=== PATIENT | male | born 1960 | race Caucasian/White ===

== ENCOUNTER 2020-09-08 21:11 | Inpatient (IN) | payer MEDICAID, SELFPAY ==
[2020-09-08] VITALS (24 sets, daily range): BP systolic 127–153; BP diastolic 78–105; PULSE 92–109; RESP 19–34; TEMP 36.6; O2SAT 89–96
--- NOTE | 2020-09-08 21:15 | RT.EKG_ITS ---
APPROVED REPORT Exam: Resting ECG Patient Location: E HR:103 bpm ECG Measurements Heart Rate 103 AXIS HI 147 P 0 QRSd 106 QRS 46 QT 348 T 23 QTc 457 Conclusion Sinus tachycardia. Probable left atrial enlargement. No ST elevation
--- NOTE | 2020-09-08 21:50 | ED.GENADUL_ITS ---
Discharge Plan Disposition Condition: Improving Discharge Details Chief Complaint: SOB Admit Date/Time: 09/09/20 00:49 Admit Provider: Bk Velazquez Attending Provider: Bk Velazquez Primary Care Provider: None,None ED Provider: Jeimy Ruvalcaba Discharge Instructions Activity:: Activity as Tolerated Equipment/Supplies:: No Equipment Needed Diet:: Normal Diet Discharge Orders Discharge Orders: Discharge Order (Routine); Ordered 09/13/20 Ordered By: Vinny Aguilar Discharge Data Discharge Date/Time-TO BE ENTERED AT DEPARTURE: 09/09/20 03:00 Medical Decision Making Patient pleasant 59-year-old male, otherwise healthy, presenting to to complain of shortness of breath. He reports over the past 2 weeks he has been having body aches, chills, fatigue. States that he initially began with a cough. Shortness of breath is new has developed over the past few days. States that his generalized body aches, malaise and diarrhea have been improving slightly but the shortness of breath has been worsening. No history of respiratory or cardiac disease. He has not been taking any medications for this. No known sick contacts. He has had a diminished sense of taste. He has not been immunized yet for COVID-19 On exam, patient appears fatigued. He is tachycardic and hypoxic. Lowest O2 witness was 88% on room air. Patient is responding well on 2 L nasal cannula. Appears dry with a thick coating on his tongue. This is not consistent with thrush. Lungs are clear. No lower extremity edema or calf tenderness. Abdomen benign. His history is most consistent with COVID-19. Also considered influenza, bacterial pneumonia, versus other viral illness. Have the patient is hypoxic and tachycardic, also consider pulmonary embolism. Is not have clinical exam findings to suggest DVT. He is not having any chest pain, I have no indication suggest ACS, pneumothorax or dissection is the source of his shortness of breath. Plan for chest x-ray, labs. If he has had diminished fluid intake, plan to give gentle hydration. Discussed this plan with the patient who is in agreement. FINDINGS: Lungs: Patchy opacities in bilateral lower lobes are concerning for multifocal pneumonia. Pleural spaces: Unremarkable. No pleural effusion. No pneumothorax. Heart/Mediastinum: Unremarkable. No cardiomegaly. Bones/joints: Unremarkable. IMPRESSION: Probable multifocal pneumonia Labs reviewed. No leukocytosis. Stable H&H. Absolute lymphocytes low at 0.88. D-dimer is elevated at 1722. With this elevation, particular given the patient's tachycardia and hypoxia, plan to move forward for CT for PE protocol. LVH elevated at 504, troponin within normal limits. CRP is elevated 8.4. Patient's history and labs are most consistent with COVID-19. Awaiting rapid Covid testing. Rapid Covid is positive. Patient will be given 6 mg of dexamethasone. Originally, remdesivir was ordered but were unable to start this at night. With his permission, spoke with his daughter, Gail Parikh?[id number]. [address] Dr[address] Velazquez regarding admission for COVID-[address] results are pending. Patient does not have any evidence to suggest right heart sided heart strain on physical exam or ECG. We will hold off on any type of anticoagulation until CT scan has returned. HPI General Mode of arrival: ambulatory . Date/Time Provider Initiated Documentation: 09/08/20 21:23 . Limitations to Documentation: no limitations . Information obtained by: patient and RN notes reviewed . History of Present Illness 59 year old M presents to the emergency department with the chief complaint of body aches, cough, SOB, diarrhea, described as moderate, Quality is described as aching (diffuse body aches), Patient started experiencing this week(s) (2) and it has been constant. No relieving factors improve symptom(s), No exacerbating factors reported . Patient notes cough, fever/chills, loss of appetite and shortness of breath; denies chest pain, diaphoresis, headaches, nausea/vomiting, rash and syncope. Patient did receive the following treatments prior to arrival, none Related Data Home Medications Medication Instructions Recorded Confirmed Unknown [No Known Home Meds] 08/27/17 09/08/20 Allergies Allergy/AdvReac Type Severity Reaction Status Date / Time No Known Allergies Allergy Unverified 09/08/20 21:32 General Stated Complaint: SOB BHARAT: 2 Review of Systems Constitutional Constitutional: Reports as per HPI, Reports chills, Reports fatigue, Reports fever(s), Denies headache(s), Reports lethargy and Denies poor appetite Eyes Eyes: Denies change in vision ENT Ears, Nose, Mouth, and Throat: Denies dizziness and Denies headache(s) Cardiovascular Cardiovascular: Reports as per HPI, Reports dyspnea and Reports dyspnea on exertion Respiratory Respiratory: Reports as per HPI, Denies chest congestion, Reports cough, Denies pain on inspiration, Denies pain with cough, Reports dyspnea, Reports dyspnea on exertion and Denies wheezing Gastrointestinal Gastrointestinal: Reports as per HPI, Denies abdominal pain, Denies melena, Denies hematochezia, Reports diarrhea, Denies nausea and Denies vomiting Genitourinary Genitourinary: Denies system reviewed and no additional complaints, except as documented (denies change in urinary habits) Musculoskeletal Musculoskeletal: Reports as per HPI and Denies back pain Integumentary/Breasts Skin/Breast: Reports as per HPI and Denies rash Neurologic Neurologic: Reports as per HPI, Denies dizziness and Denies headache(s) Endocrine Endocrine: Reports fatigue Allergic/Immunologic Allergic/Immunologic: Denies wheezing [facility] Social History Smoking/Tobacco Use Status: Never Smoking risk assessment performed?: Yes Drug use: Never Substance use type: does not use Do you feel safe at home: Yes Do you feel safe in your relationship?: Yes Exam Const General: cooperative, comfortable, no acute distress, well developed and ill appearing acutely Nutritional Appearance: average body habitus and well nourished Orientation: alert, awake and oriented x3 HENMT Head: normal to inspection Ears: hearing grossly normal bilaterally Mouth: mucous membranes dry, tongue abnormal with white coating (similar to geographic tongue), no trismus and No restricted motion Throat: posterior oropharynx normal, tonsils normal and uvula midline Neck Neck: normal visual inspection, full ROM, no lymphadenopathy and no meningeal signs Chest Chest: normal inspection of the chest, normal palpation of entire chest wall and no crepitus Resp Effort & Inspection: normal respiratory effort, able to speak in complete sentences and no respiratory distress Auscultation: clear to auscultation bilaterally, no rales, no rhonchi and no wheezes Cardio Rate: regular rate Rhythm: regular rhythm Heart Sounds: S1 normal and S2 normal GI Inspection: normal to inspection, no edema and non-distended Palpation: soft, no hepatosplenomegaly, not firm, no guarding, not rigid and nontender Auscultation: normal bowel sounds Skin General skin exam: no rashes or lesions noted Trauma: no lacerations or abrasions Neuro General: patient alert, patient awake and patient oriented x3 Cognition: normal cognition Speech: speech normal Gait: normal gait Extrem General: normal to inspection, capillary refill normal, no pedal edema, no calf tenderness and normal gait Psych Appearance: grossly normal and well kempt Mental Status: mental status grossly normal Speech and Movement: speech and movement normal Course Vital Signs Vital signs: Vital Signs Temperature 36.6 C 09/08/20 21:26 Pulse 109 H 09/08/20 21:26 Respiratory Rate 24 09/08/20 21:26 Blood Pressure 127/85 09/08/20 21:26 Pulse Oximetry 89 L 09/08/20 21:26 Temperature 36.6 C 09/08/20 21:26 Temperature Source Temporal Artery Scan 09/08/20 21:26 Pulse 109 H 09/08/20 21:26 Respiratory Rate 32 H 09/08/20 21:46 Respiratory Effort 09/08/20 21:46 Respiratory Depth Shallow 09/08/20 21:46 Respiratory Pattern Tachypnea 09/08/20 21:46 Blood Pressure 127/85 09/08/20 21:26 Pulse Oximetry 89 L 09/08/20 21:26 Oxygen Delivery Method Room Air 09/08/20 21:26 Oxygen Flow Rate 0 09/08/20 21:26
--- NOTE | 2020-09-08 22:27 | DI.RAD_ITS ---
EXAM: XR PORTABLE CHEST AP CLINICAL HISTORY: SOB, cough TECHNIQUE: 2D digital imaging was performed. COMPARISON: No exams were available for comparison FINDINGS: MEDIASTINUM: Normal. HEART: Normal. PULMONARY VASCULATURE: Normal. LUNGS: Bilateral pulmonary infiltrates are seen predominantly peripherally in the bases. PLEURAL SPACE: No pleural effusion or pneumothorax. BONE:Within normal limits for the patient's age. OTHER FINDINGS:Normal. IMPRESSION: Bilateral pulmonary infiltrates suspicious for multifocal pneumonia. DATA REPOSITORY: RADIATION DOSE DELIVERED:
[2020-09-08] MEDS: Normal Saline 500 ML IV (22:28)
[2020-09-08 22:29] LABS: Abs Immature Grans 0.03 10^3/uL (0.0-0.06); Absolute Basophil Count 0.01 10^3/uL (0.0-0.2); Absolute Lymphocyte Count 0.88 10^3/uL (1.2-3.4); Absolute Monocyte Count 0.38 10^3/uL (0.1-0.8); Absolute Neutrophil Count 4.87 10^3/uL (1.2-6.7); Basophils % 0.2; HCT 44.7 % (40.0-50.0); HGB 15.3 g/dL (13.5-17.5); Immature Grans % 0.5; Lymphocytes % 14.3; MCH 30.5 pg (27.0-33.0); MCHC 34.2 % (32.0-36.0); MPV 9.9 fL (8.0-11.0); Monocytes % 6.2; Neutrophils % 78.8; Nucleated RBC 0 %; Platelet Count 277 10^3/uL (130-400); RBC 5.02 10^6/uL (4.36-5.78); RDW 12.2 % (11.8-14.1); WBC 6.17 10^3/uL (4.4-10.8)
--- NOTE | 2020-09-08 22:40 | DI.VRAD_ITS ---
PROCEDURE INFORMATION: Exam: XR Chest Exam date and time: 09/08/2020 10:07 PM Age: 59 years old Clinical indication: Cough and shortness of breath TECHNIQUE: Imaging protocol: XR of the chest Views: 1 view. COMPARISON: No relevant prior studies available. FINDINGS: Lungs: Patchy opacities in bilateral lower lobes are concerning for multifocal pneumonia. Pleural spaces: Unremarkable. No pleural effusion. No pneumothorax. Heart/Mediastinum: Unremarkable. No cardiomegaly. Bones/joints: Unremarkable. IMPRESSION: Probable multifocal pneumonia. Dictated and Authenticated by: Bk Edge MD. Ordering:TOBY Munson MD
[2020-09-08 23:00] LABS: LDH 504 U/L (85-227)
[2020-09-08 23:01] LABS: ALT 44 U/L (16-63); AST 47 U/L (15-37); Albumin 3.3 g/dL (3.4-5.0); Alkaline Phosphatase 59 U/L (46-116); Anion Gap 12.4 mmol/L (3-11); BUN 11 mg/dL (7-18); Bilirubin, Total 0.4 mg/dL (0.2-1.0); CO2 24.6 mmol/L (21.0-32.0); Calcium 8.4 mg/dL (8.5-10.1); Chloride 98 mmol/L (98-107); Glucose 129 mg/dL (74-106); Magnesium 1.9 mg/dL (1.8-2.4); Potassium 3.7 mmol/L (3.5-5.1); Sodium 135 mmol/L (136-145); Total Protein 7.8 g/dL (6.4-8.2)
[2020-09-08 23:04] LABS: D-Dimer 1722 ng/mlFEU (<500)
[2020-09-08 23:14] LABS: Influenza A PCR Negative (Negative); Influenza B PCR Negative (Negative); RSV PCR Negative (Negative)
[2020-09-08 23:20] LABS: COVID-19 PCR POSITIVE (Negative)
[2020-09-08] MEDS: Dexamethasone 4 MG/ML VIAL 6 MG IVP (23:42)
--- NOTE | 2020-09-08 23:51 | DI.CT_ITS ---
EXAM: CT CHEST PE CTA CLINICAL HISTORY: elevated dimer, SOB, O2 demand. TECHNIQUE: Imaging Protocol: Axial CT angiography was performed with multi-slice acquisition and mu lti-planar and/or 3D reconstructions. CONTRAST MATERIAL: Intravenous: Omnipaque 350 Contrast volume:80 mL COMPARISON: CR,XR XR PORTABLE CHEST AP from 09/08/2020 CR,XR XR PORTABLE CHEST AP from 09/08/2020 FINDINGS: The examination is limited due to patient motion artifact. Tracheobronchial tree: Patent where visualized. Pulmonary parenchyma: There are bilateral multifocal predominantly peripheral ground-glass opacities in the lungs. The findings predominantly affect the lower lobes. No architectural distortion. Pulmonary Arteries: No evidence of filling defect to suggest pulmonary emboli. Mediastinum and Love: No dominant adenopathy or fluid collection. Visualized thyroid gland: Unremarkable. Pleura: No effusion or pneumothorax. Heart: The heart is not dilated. Mild coronary artery calcification. No pericardial effusion. Aorta: Thoracic aorta non-dilated. No evidence of dissection. Upper abdomen: Unremarkable. Soft tissues: Unremarkable. Bones: Within normal limits for the patient's age. IMPRESSION: 1. No evidence of pulmonary embolism, thoracic aortic dissection or aneurysm. 2. Scattered peripheral ground-glass opacities consistent with multifocal pneumonia, likely viral. RADIATION DOSE DELIVERED: 466.98mGy.cm Total DLP DATA REPOSITORY: All CT scans at this facility are submitted to the National Radiology Data Registry (NRDR) Dose Index Registry (DIR) with the [employer] (A[employer]). RADIATION OPTIMIZATION: All CT scans at this facility use at least one of these dose optimization te chniques: automated exposure control; mA and/or kV adjustment per patient size (includes targeted exa ms where dose is matched to clinical indication); or iterative reconstruction.
[2020-09-08 23:56] LABS: Troponin I < 0.05 ng/mL (<0.06)
[2020-09-09] VITALS (29 sets, daily range): BP systolic 129–168; BP diastolic 80–100; PULSE 59–83; RESP 18–28; TEMP 36.2–37.7; O2SAT 94–98
[2020-09-09] MEDS: Omnipaque 350 MG/ML 50 ML BTL IJ ×2 (00:11→00:12)
[2020-09-09] MEDS: Normal Saline Flush 10 ML SYR IVP ×3 (00:11→17:47)
[2020-09-09] MEDS: Normal Saline - Diluent 50 ML VIAL IV (00:12)
--- NOTE | 2020-09-09 00:23 | DI.VRAD_ITS ---
PROCEDURE INFORMATION: Exam: CT Angiography Chest With Contrast Exam date and time: 09/08/2020 11:12 PM Age: 59 years old Clinical indication: Shortness of breath TECHNIQUE: Imaging protocol: Computed tomographic angiography of the chest with contrast. 3D rendering (Not supervised by radiologist): MIP and/or 3D reconstructed images were created by the technologist. Radiation optimization: All CT scans at this facility use at least one of these dose optimization techniques: automated exposure control; mA and/or kV adjustment per patient size (includes targeted exams where dose is matched to clinical indication); or iterative reconstruction. Contrast material: [id number]; Contrast volume: 80 ml; Contrast route: INTRAVENOUS (IV); COMPARISON: CR XR PORTABLE CHEST AP 09/08/2020 10:10 PM FINDINGS: Pulmonary arteries: Normal. No pulmonary emboli. Aorta: Unremarkable. No aortic aneurysm. No aortic dissection. Lungs: Scattered peripheral ground-glass opacities. Pleural spaces: Unremarkable. No pneumothorax. No pleural effusion. Heart: Unremarkable. No cardiomegaly. No pericardial effusion. Lymph nodes: Unremarkable. No enlarged lymph nodes. Liver: No intrahepatic contrast reflux. Bones/joints: Mild multilevel degenerative disc disease. No acute fracture or focal suspicious osseous lesion. Soft tissues: Unremarkable. IMPRESSION: 1. No pulmonary embolism. 2. Scattered peripheral ground-glass opacities, consistent with multifocal pneumonia, likely viral. Dictated and Authenticated by: Bk Edge MD. Ordering:TOBY Munson MD
--- NOTE | 2020-09-09 00:39 | W.PM.HP.N ---
Date of service: 09/09/20 Time of Service: 00:40 Assessment and Plan Assessment and plan (1) COVID-19: Status: Acute Assessment and plan: Covid 19 manifesting with patchy pneumonitis and hypoxia. Oxygenating well with supplemental O2. Will continue Dexamethasone and Remdesivir. Will add Lovenox at prophylaxis dosing. History of Present Illness History of Present Illness Chief Complaint: SOB Narrative: 59 male non-smoker, here with two weeks of constitutional sxx (fatigue, myalgia), diarrhea, dry cough and SOB. All has largely resolved except continuing SOB. In ER findings of note for O2 sat 89% on RA, lymphopenia and elevated LDH and d-Dimer, CXR with bilateral patchy opacities and + Covid swab. CTA negative PE. Given Dexa 6, Remdesivir ordered, not available until AM. Admitted for further management. 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 Review of Systems All systems reviewed & are unremarkable except as noted in HPI and below PFSH Social History Smoking/Tobacco Use Status: Never Smoking risk assessment performed?: Yes Drug use: Never Substance use type: does not use Do you feel safe at home: Yes Do you feel safe in your relationship?: Yes Meds Home Medications and Allergies Allergies Allergy/AdvReac Type Severity Reaction Status Date / Time No Known Allergies Allergy Unverified 09/08/20 21:32 Home Medications Medication Instructions Recorded Confirmed Type Unknown [No Known Home Meds] 08/27/17 09/08/20 History Exam Narrative Exam Narrative: 153/82, 98, 36.6, 26, 94% 2L. HEENT atraumatic; neck supple; lungs fine rales right base; heart RRR w/o MRG; abdomen soft and NT; extremities w/o edema; neuro Ox3, nonfocal Results Labs Result diagrams: 09/08/20 21:45 09/08/20 21:45 Labs: Laboratory Results - last 24 hr 09/08/20 09/08/20 09/08/20 21:45 21:45 21:45 WBC 6.17 RBC 5.02 Hgb 15.3 Hct 44.7 MCV 89.0 MCH 30.5 MCHC 34.2 RDW 12.2 Plt Count 277 MPV 9.9 Immature Gran % 0.5 Neutrophils % 78.8 Lymphocytes % 14.3 Monocytes % 6.2 Eosinophils % 0.0 Basophils % 0.2 Nucleated RBC % 0 Absolute Neutrophils 4.87 Absolute Lymphocytes 0.88 L Absolute Monocytes 0.38 Absolute Eosinophils 0.00 Absolute Basophils 0.01 D-Dimer Sodium 135 L Potassium 3.7 Chloride 98 Carbon Dioxide 24.6 Anion Gap 12.4 H BUN 11 Creatinine 1.0 Estimated GFR/1.73 m2 >= 60.00 Glucose 129 H Calcium 8.4 L Magnesium 1.9 Total Bilirubin 0.4 AST 47 H ALT 44 Alkaline Phosphatase 59 Lactate Dehydrogenase Troponin I C-Reactive Protein 8.40 H Total Protein 7.8 Albumin 3.3 L COVID-19 Source SARS-CoV-2 (PCR) Influenza Type A (PCR) Influenza Type B (PCR) RSV (PCR) 09/08/20 09/08/20 09/08/20 21:45 21:45 21:45 WBC RBC Hgb Hct MCV MCH MCHC RDW Plt Count MPV Immature Gran % Neutrophils % Lymphocytes % Monocytes % Eosinophils % Basophils % Nucleated RBC % Absolute Neutrophils Absolute Lymphocytes Absolute Monocytes Absolute Eosinophils Absolute Basophils D-Dimer 1722 H Sodium Potassium Chloride Carbon Dioxide Anion Gap BUN Creatinine Estimated GFR/1.73 m2 Glucose Calcium Magnesium Total Bilirubin AST ALT Alkaline Phosphatase Lactate Dehydrogenase 504 H Troponin I < 0.05 C-Reactive Protein Total Protein Albumin COVID-19 Source SARS-CoV-2 (PCR) Influenza Type A (PCR) Influenza Type B (PCR) RSV (PCR) 09/08/20 22:20 WBC RBC Hgb Hct MCV MCH MCHC RDW Plt Count MPV Immature Gran % Neutrophils % Lymphocytes % Monocytes % Eosinophils % Basophils % Nucleated RBC % Absolute Neutrophils Absolute Lymphocytes Absolute Monocytes Absolute Eosinophils Absolute Basophils D-Dimer Sodium Potassium Chloride Carbon Dioxide Anion Gap BUN Creatinine Estimated GFR/1.73 m2 Glucose Calcium Magnesium Total Bilirubin AST ALT Alkaline Phosphatase Lactate Dehydrogenase Troponin I C-Reactive Protein Total Protein Albumin COVID-19 Source Nasopharyx SARS-CoV-2 (PCR) Positive A* Influenza Type A (PCR) Negative Influenza Type B (PCR) Negative RSV (PCR) Negative Last Vital Signs Temp 36.6 C 09/08/20 21:26 Pulse 93 H 09/08/20 23:15 Resp 26 H 09/08/20 23:20 BP 153/82 H 09/08/20 23:15 Pulse Ox 94 09/08/20 23:20 COVID-19 Screening Have you, or household traveled for leisure in last 14 days?: No Had IN PERSON contact w/suspected or confirmed C-19 person: No
[2020-09-09] MEDS: Enoxaparin 40 MG/0.4 ML SYR SC ×2 (03:27→21:38)
[2020-09-09 08:19] LABS: Lactate 1.1 mmol/L (0.6-1.4)
[2020-09-09 08:20] LABS: Abs Immature Grans 0.03 10^3/uL (0.0-0.06); Absolute Monocyte Count 0.41 10^3/uL (0.1-0.8); Absolute Neutrophil Count 3.35 10^3/uL (1.2-6.7); HCT 41.7 % (40.0-50.0); HGB 14.4 g/dL (13.5-17.5); Immature Grans % 0.7; Lymphocytes % 11.7; MCHC 34.5 % (32.0-36.0); MCV 89.7 fL (80-95); MPV 9.4 fL (8.0-11.0); Monocytes % 9.6; Nucleated RBC 0 %; Platelet Count 268 10^3/uL (130-400); RBC 4.65 10^6/uL (4.36-5.78); RDW 12.3 % (11.8-14.1); RDW-SD 40.4 fL; WBC 4.29 10^3/uL (4.4-10.8)
[2020-09-09] MEDS: Cholecalciferol (Vitamin D3) 1,000 UNIT TAB 4000 UNITS PO (08:30)
[2020-09-09] MEDS: Dexamethasone 4 MG TAB 6 MG PO (08:30)
[2020-09-09] MEDS: Famotidine 20 MG TAB PO ×2 (08:30→21:37)
[2020-09-09] MEDS: Ascorbic Acid 500 MG TAB 1000 MG PO (08:30)
[2020-09-09 08:36] LABS: INR 1.1 (0.9-1.1); Prothrombin Time 10.8 sec (9.3-11.0)
[2020-09-09 08:51] LABS: Bilirubin, Direct 0.09 mg/dL (0.00-0.20); C-Reactive Protein 9.61 mg/dL (0.0-0.3); Creatine Kinase 619 U/L (39-308); Magnesium 2.2 mg/dL (1.8-2.4); NT-proBNP 81 pg/mL (<300)
[2020-09-09 08:54] LABS: Procalcitonin < 0.1 ng/mL
[2020-09-09 08:58] LABS: D-Dimer 1317 ng/mlFEU (<500)
[2020-09-09 09:07] LABS: ALT 41 U/L (16-63); AST 40 U/L (15-37); Albumin 2.8 g/dL (3.4-5.0); Alkaline Phosphatase 51 U/L (46-116); BUN 14 mg/dL (7-18); Bilirubin, Total 0.3 mg/dL (0.2-1.0); CREATININE 0.9 mg/dL (0.70-1.30); Calcium 8.4 mg/dL (8.5-10.1); Chloride 104 mmol/L (98-107); Glucose 136 mg/dL (74-106); Potassium 3.6 mmol/L (3.5-5.1); Sodium 139 mmol/L (136-145); Total Protein 7.1 g/dL (6.4-8.2)
[2020-09-09 09:09] LABS: Ferritin > 2000 ng/mL (26-388); Troponin I < 0.05 ng/mL (<0.06)
--- NOTE | 2020-09-09 15:50 | PHA.REVIEW ---
Pharmacy Admission Review - Admission Clinical Review (Last Reviewed 09/09/20 @ 00:44 by Bk Velazquez MD) COVID-19 (Acute) No Known Allergies Allergy (Unverified 09/08/20 21:32) Height 5 ft 9 in Weight 95.254 kg COVID PNEUMONIA, 2 weeks of symptoms - Comments Comments/Follow Ups: Patient rec'd 1st dose of Remdesivir 200mg 09/09/20 ~ 4am, will receive 100mg Q24h for 4 more doses. Dexamethasone for elevated inflammatory markers, Ferritin elevated, Lactate elevated...continue to trend, see Quick guide for management of COVID-19 reference. Patient is on 2L oxygen, with Sats 95-97% - Renal Dosing Renal Dosing: BUN 14 mg/dL (7-18) 09/09/20 08:10 Creatinine 0.9 mg/dL (0.70-1.30) 09/09/20 08:10 Medications needing adjustments: Reviewed (CrCl~87ml/min) - Anticoagulation Anticoagulation: Hgb 14.4 g/dL (13.5-17.5) 09/09/20 08:10 Hct 41.7 % (40.0-50.0) 09/09/20 08:10 Plt Count 268 10^3/uL (130-400) 09/09/20 08:10 INR 1.1 (0.9-1.1) 09/09/20 08:10 Creatinine 0.9 mg/dL (0.70-1.30) 09/09/20 08:10 DVT Prohphylaxis: Reviewed Medications: Enoxaparin - Opiate Usage Evaluate Pain Scale/Pains Meds: N/A - Relevant Labs Sodium 139 mmol/L (136-145) 09/09/20 08:10 Potassium 3.6 mmol/L (3.5-5.1) 09/09/20 08:10 Chloride 104 mmol/L (98-107) 09/09/20 08:10 Magnesium 2.2 mg/dL (1.8-2.4) 09/09/20 08:10 C-Reactive Protein 9.61 mg/dL (0.0-0.3) H 09/09/20 08:10 Electrolytes, C-Reactive P, ESR: Reviewed (Procalcitonin <0.1, Vit D level low, Creatinine kinase elevated 619, C-reactive protein elevated) - DM Control DM Control: Glucose 136 mg/dL (74-106) H 09/09/20 08:10 Insulin Dosing: N/A - Heart Failure/MD Heart Failure/MD: Troponin I < 0.05 ng/mL (<0.06) 09/09/20 08:10 NT-Pro-B Natriuret Pep 81 pg/mL (<300) 09/09/20 08:10 EF%, MARIAM's, B-Blockers, Diuretics: N/A - BP Control BP Control: Blood Pressure 168/94 Blood Pressure 140/94 Blood Pressure 129/80 If elevated: N/A - Qtc Review If Elevated: Reviewed (QTC 457) - Home Meds Home Med List reviewed: Reviewed (no home meds)
--- NOTE | 2020-09-09 16:36 | W.PM.PROGNOT ---
Date of Service Date of service: 09/09/20 Time of Service: 16:36 Subjective Subjective Interval history since last seen: I checked on the patient over the phone as he has been stable today. His O2 sats have been in the 90's on 2L. He feels better. Denies body aches today. Feels less short of breath. Continues to report nonproductive cough. We discussed his elevated CPK - I will be giving him 1 L of NS at 75 cc/hr. We discussed vitamin D supplementation. He did not have any questions or requests for me at this time. Objective Last Vital Signs Temp 36.4 C L 09/09/20 12:09 Pulse 68 09/09/20 15:16 Resp 22 09/09/20 12:09 BP 168/94 H 09/09/20 12:09 Pulse Ox 97 09/09/20 12:09 Laboratory Results - last 24 hr 09/08/20 09/08/20 09/08/20 21:45 21:45 21:45 WBC 6.17 RBC 5.02 Hgb 15.3 Hct 44.7 MCV 89.0 MCH 30.5 MCHC 34.2 RDW 12.2 Plt Count 277 MPV 9.9 Immature Gran % 0.5 Neutrophils % 78.8 Lymphocytes % 14.3 Monocytes % 6.2 Eosinophils % 0.0 Basophils % 0.2 Nucleated RBC % 0 Absolute Neutrophils 4.87 Absolute Lymphocytes 0.88 L Absolute Monocytes 0.38 Absolute Eosinophils 0.00 Absolute Basophils 0.01 PT INR D-Dimer VBG Lactate Sodium 135 L Potassium 3.7 Chloride 98 Carbon Dioxide 24.6 Anion Gap 12.4 H BUN 11 Creatinine 1.0 Estimated GFR/1.73 m2 >= 60.00 Glucose 129 H Calcium 8.4 L Magnesium 1.9 Ferritin Total Bilirubin 0.4 Conjugated Bilirubin AST 47 H ALT 44 Alkaline Phosphatase 59 Lactate Dehydrogenase Creatine Kinase Troponin I C-Reactive Protein 8.40 H NT-Pro-B Natriuret Pep Total Protein 7.8 Albumin 3.3 L 25-OH Vitamin D Total Procalcitonin COVID-19 Source SARS-CoV-2 (PCR) Influenza Type A (PCR) Influenza Type B (PCR) RSV (PCR) 09/08/20 09/08/20 09/08/20 21:45 21:45 21:45 WBC RBC Hgb Hct MCV MCH MCHC RDW Plt Count MPV Immature Gran % Neutrophils % Lymphocytes % Monocytes % Eosinophils % Basophils % Nucleated RBC % Absolute Neutrophils Absolute Lymphocytes Absolute Monocytes Absolute Eosinophils Absolute Basophils PT INR D-Dimer 1722 H VBG Lactate Sodium Potassium Chloride Carbon Dioxide Anion Gap BUN Creatinine Estimated GFR/1.73 m2 Glucose Calcium Magnesium Ferritin Total Bilirubin Conjugated Bilirubin AST ALT Alkaline Phosphatase Lactate Dehydrogenase 504 H Creatine Kinase Troponin I < 0.05 C-Reactive Protein NT-Pro-B Natriuret Pep Total Protein Albumin 25-OH Vitamin D Total Procalcitonin COVID-19 Source SARS-CoV-2 (PCR) Influenza Type A (PCR) Influenza Type B (PCR) RSV (PCR) 09/08/20 09/09/20 09/09/20 22:20 08:10 08:10 WBC RBC Hgb Hct MCV MCH MCHC RDW Plt Count MPV Immature Gran % Neutrophils % Lymphocytes % Monocytes % Eosinophils % Basophils % Nucleated RBC % Absolute Neutrophils Absolute Lymphocytes Absolute Monocytes Absolute Eosinophils Absolute Basophils PT INR D-Dimer VBG Lactate 1.1 Sodium 139 Potassium 3.6 Chloride 104 Carbon Dioxide 24.0 Anion Gap 11.0 BUN 14 Creatinine 0.9 Estimated GFR/1.73 m2 >= 60.00 Glucose 136 H Calcium 8.4 L Magnesium 2.2 Ferritin > 2000 H Total Bilirubin 0.3 Conjugated Bilirubin 0.09 AST 40 H ALT 41 Alkaline Phosphatase 51 Lactate Dehydrogenase Creatine Kinase 619 H Troponin I < 0.05 C-Reactive Protein 9.61 H NT-Pro-B Natriuret Pep 81 Total Protein 7.1 Albumin 2.8 L 25-OH Vitamin D Total Procalcitonin < 0.1 COVID-19 Source Nasopharyx SARS-CoV-2 (PCR) Positive A* Influenza Type A (PCR) Negative Influenza Type B (PCR) Negative RSV (PCR) Negative 09/09/20 09/09/20 09/09/20 08:10 08:10 08:10 WBC 4.29 L D RBC 4.65 Hgb 14.4 Hct 41.7 MCV 89.7 MCH 31.0 MCHC 34.5 RDW 12.3 Plt Count 268 MPV 9.4 Immature Gran % 0.7 Neutrophils % 78.0 Lymphocytes % 11.7 Monocytes % 9.6 Eosinophils % 0.0 Basophils % 0.0 Nucleated RBC % 0 Absolute Neutrophils 3.35 Absolute Lymphocytes 0.50 L Absolute Monocytes 0.41 Absolute Eosinophils 0.00 Absolute Basophils 0.00 PT 10.8 INR 1.1 D-Dimer 1317 H VBG Lactate Sodium Potassium Chloride Carbon Dioxide Anion Gap BUN Creatinine Estimated GFR/1.73 m2 Glucose Calcium Magnesium Ferritin Total Bilirubin Conjugated Bilirubin AST ALT Alkaline Phosphatase Lactate Dehydrogenase Creatine Kinase Troponin I C-Reactive Protein NT-Pro-B Natriuret Pep Total Protein Albumin 25-OH Vitamin D Total 17.0 L Procalcitonin COVID-19 Source SARS-CoV-2 (PCR) Influenza Type A (PCR) Influenza Type B (PCR) RSV (PCR)
[2020-09-09] MEDS: Normal Saline 1,000 ML 75 ML IV (17:44)
--- NOTE | 2020-09-09 18:26 | INITIAL_ITS ---
- If Service Date Differs Date of service: 09/09/20 Time of Service: 18:26 Care Management Initial Assess REASON FOR HOSPITALIZATION:: Covid PAST MEDICAL HISTORY/PAST SURGICAL HISTORY:: No noted medical history. PREVIOUS FUNCTIONAL STATUS/SOCIAL/FAMILY SUPPORTS:: Bonilla lives in [facility]. 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 CM was not able to engage with Bonilla as he is on Covid precautions. CURRENT FUNCTIONAL STATUS:: CM is on precautions for Covid 19, and CM was unable to engage with him. CM attempted to call his cell phone, and left a voicemail. Per report, he is feeling better today. CM will continue to follow. ADVANCE DIRECTIVES:: None on file. Has patient been provided with info about the portal/API?: No Did the patient sign up for the portal?: No CODE STATUS:: Full Code INSURANCE COVERAGE / FINANCIAL ISSUES:: [employer] CURRENT HOME/COMMUNITY SERVICES/EQUIPMENT:: No known services or equipment. PRIMARY CARE PHYSICIAN:: No PCP listed. CM will send a referral to commissioning specialist MD at time of admission. POTENTIAL DISCHARGE NEEDS:: Follow up appointments, PCP attachment. PATIENT/FAMILY EDUCATION NEEDS:: Review discharge instructions regarding Covid 19 precautions, discussion of self care needs. ANTICIPATED BARRIERS TO DISCHARGE:: None identified. TRANSPORTATION:: Via private vehicle by family. PLAN:: Anticipate Bonilla will return home once medically cleared. CM will connect him with a local PCP for follow up. He will be transported via private vehicle by family. CM will continue to follow.
[2020-09-09] MEDS: Melatonin 3 MG TAB 6 MG PO (21:37)
[2020-09-10] VITALS (11 sets, daily range): BP systolic 126–145; BP diastolic 74–99; PULSE 57–73; RESP 18–20; TEMP 36.2–36.9; O2SAT 95–97
[2020-09-10 06:58] LABS: Abs Immature Grans 0.05 10^3/uL (0.0-0.06); Absolute Basophil Count 0.01 10^3/uL (0.0-0.2); Absolute Monocyte Count 0.49 10^3/uL (0.1-0.8); Basophils % 0.1; HCT 42.4 % (40.0-50.0); HGB 14.5 g/dL (13.5-17.5); Immature Grans % 0.7; Lymphocytes % 14.8; MCH 30.7 pg (27.0-33.0); MCHC 34.2 % (32.0-36.0); MCV 89.6 fL (80-95); MPV 9.7 fL (8.0-11.0); Monocytes % 7.2; Neutrophils % 77.2; Nucleated RBC 0 %; Platelet Count 333 10^3/uL (130-400); RBC 4.73 10^6/uL (4.36-5.78); RDW-SD 39.6 fL; WBC 6.77 10^3/uL (4.4-10.8)
[2020-09-10 07:07] LABS: ALT 38 U/L (16-63); AST 29 U/L (15-37); Albumin 2.7 g/dL (3.4-5.0); Alkaline Phosphatase 51 U/L (46-116); Anion Gap 9.6 mmol/L (3-11); BUN 16 mg/dL (7-18); Bilirubin, Direct 0.06 mg/dL (0.00-0.20); Bilirubin, Total 0.3 mg/dL (0.2-1.0); C-Reactive Protein 6.49 mg/dL (0.0-0.3); CO2 25.4 mmol/L (21.0-32.0); CREATININE 0.8 mg/dL (0.70-1.30); Calcium 8.7 mg/dL (8.5-10.1); Chloride 106 mmol/L (98-107); Glucose 105 mg/dL (74-106); Magnesium 2.2 mg/dL (1.8-2.4); Potassium 3.7 mmol/L (3.5-5.1); Sodium 141 mmol/L (136-145); Total Protein 6.9 g/dL (6.4-8.2)
[2020-09-10 07:11] LABS: Absolute Neutrophil Count 5.23 10^3/uL (1.2-6.7)
[2020-09-10 07:30] LABS: D-Dimer 1014 ng/mlFEU (<500)
[2020-09-10 08:06] LABS: Ferritin > 2000 ng/mL (26-388)
[2020-09-10] MEDS: Cholecalciferol (Vitamin D3) 1,000 UNIT TAB 4000 UNITS PO (08:34)
[2020-09-10] MEDS: Ascorbic Acid 500 MG TAB 1000 MG PO (08:35)
[2020-09-10] MEDS: Famotidine 20 MG TAB PO ×2 (08:35→21:52)
[2020-09-10] MEDS: Dexamethasone 4 MG TAB 6 MG PO (08:35)
[2020-09-10 10:48] LABS: Creatine Kinase 390 U/L (39-308)
--- NOTE | 2020-09-10 12:22 | W.NUTRFU ---
Date of service: 09/10/20 Time of Service: 12:22 Nutritional Follow up NOTE: 59 year old male admitted with SOB, with covid 19 infection. BMI indicates obesity. Following regular meal plan with excellent intake. Meeting nutrient and fluid needs by mouth. Not at nutritional risk. Will continue to follow Time Spent in Nutritional Counseling and Treatment: 0
--- NOTE | 2020-09-10 16:39 | W.PM.PROGNOT ---
Date of Service Date of service: 09/10/20 Time of Service: 16:40 Assessment and Plan Assessment and plan (1) Pneumonia due to COVID-19 virus: Status: Acute Assessment and plan: Continue decadron, remdesivir. Encourage proning, IS. Supplement vitamin D. Melatonin HS. (2) Hypoxia: Status: Acute Assessment and plan: Due to above. PE ruled out. Wean O2 as tolerated. (3) Vitamin D deficiency: Status: Acute Assessment and plan: Replete (4) Elevated CPK: Status: Acute Assessment and plan: In setting of COVID-19. CPK near normalized. Patient is s/p 1 L of NS overnight last night. Will not continue IVF. (5) DVT prophylaxis: Status: Acute Assessment and plan: Lovenox sc (6) Discharge planning issues: Status: Acute Assessment and plan: Full code Continues to require hospitalization. Subjective Subjective Interval history since last seen: Mr Wylie states he feels about the same today as he did yesterday but better than when he first came in. Interestingly, he does not remember talking to me on the phone yesterday. He remains on 2L, last O2 sat 97%. He denies dizziness, headache, changes to taste/smell, chest pain. He is less short of breath and his cough is better. Denies nausea/diarrhea. He has been laying on one said and the other, but not on his abdomen. He did sit in the chair some. He was instructed to work with IS. States he drinks 1-2 drinks a week. Exam Narrative Exam Narrative: General: pleasant middle-aged male, sounds somewhat horse, A&Ox3, slightly tremulous. HEENT: EOMI, MMM Heart: RRR, no m/r/g Lungs: crackles at R base, otherwise CTAB Abdomen: soft, nontender, nondistended Extremities: no edema BLE's. Objective Last Vital Signs Temp 36.4 C L 09/10/20 08:36 Pulse 71 09/10/20 14:59 Resp 20 09/10/20 12:27 BP 128/74 09/10/20 08:36 Pulse Ox 97 09/10/20 12:27 Laboratory Results - last 24 hr 09/10/20 09/10/20 09/10/20 06:32 06:32 06:32 WBC 6.77 D RBC 4.73 Hgb 14.5 Hct 42.4 MCV 89.6 MCH 30.7 MCHC 34.2 RDW 12.0 Plt Count 333 MPV 9.7 Immature Gran % 0.7 Neutrophils % 77.2 Lymphocytes % 14.8 Monocytes % 7.2 Eosinophils % 0.0 Basophils % 0.1 Nucleated RBC % 0 Absolute Neutrophils 5.23 Absolute Lymphocytes 1.00 L Absolute Monocytes 0.49 Absolute Eosinophils 0.00 Absolute Basophils 0.01 D-Dimer 1014 H Sodium 141 Potassium 3.7 Chloride 106 Carbon Dioxide 25.4 Anion Gap 9.6 BUN 16 Creatinine 0.8 Estimated GFR/1.73 m2 >= 60.00 Glucose 105 Calcium 8.7 Magnesium 2.2 Ferritin > 2000 H Total Bilirubin 0.3 Conjugated Bilirubin 0.06 AST 29 ALT 38 Alkaline Phosphatase 51 Creatine Kinase C-Reactive Protein 6.49 H Total Protein 6.9 Albumin 2.7 L 09/10/20 06:32 WBC RBC Hgb Hct MCV MCH MCHC RDW Plt Count MPV Immature Gran % Neutrophils % Lymphocytes % Monocytes % Eosinophils % Basophils % Nucleated RBC % Absolute Neutrophils Absolute Lymphocytes Absolute Monocytes Absolute Eosinophils Absolute Basophils D-Dimer Sodium Potassium Chloride Carbon Dioxide Anion Gap BUN Creatinine Estimated GFR/1.73 m2 Glucose Calcium Magnesium Ferritin Total Bilirubin Conjugated Bilirubin AST ALT Alkaline Phosphatase Creatine Kinase 390 H C-Reactive Protein Total Protein Albumin
--- NOTE | 2020-09-10 16:58 | PDOC.CMPRO ---
- If Service Date Differs Date of service: 09/10/20 Time of Service: 16:58 Care Management Progress Note S/O: Bonilla continues to be closely followed. He remains on 2L of O2, last stat 97%. [facility] station provider when he presented to the ED. Per report, he continues to require hospitalization. CM did not visit him due to Covid 19 precautions. CM will continue to follow. A: Bonilla is a 59 year old male admitted to [facility] on 09/08/20 with Covid 19. P: Anticipate Bonilla will return home once medically cleared. CM sent a referral for PCP follow up to Marjan Estrella [facility]. He will be transported via private vehicle by family. CM will continue to follow.
[2020-09-10] MEDS: Melatonin 3 MG TAB 6 MG PO (21:52)
[2020-09-10] MEDS: Enoxaparin 40 MG/0.4 ML SYR SC (21:52)
[2020-09-10] MEDS: Normal Saline Flush 10 ML SYR IVP (22:01)
[2020-09-11] VITALS (21 sets, daily range): BP systolic 130–148; BP diastolic 88–94; PULSE 52–83; RESP 14–20; TEMP 36.4–37.3; O2SAT 78–98
[2020-09-11] MEDS: Normal Saline Flush 10 ML SYR IVP (03:21)
[2020-09-11] MEDS: Normal Saline 500 ML 30 ML IV (03:21)
[2020-09-11 07:00] LABS: Abs Immature Grans 0.05 10^3/uL (0.0-0.06); Absolute Basophil Count 0.01 10^3/uL (0.0-0.2); Absolute Eosinophil Count 0.02 10^3/uL (0.0-0.7); Absolute Lymphocyte Count 1.09 10^3/uL (1.2-3.4); Absolute Monocyte Count 0.53 10^3/uL (0.1-0.8); Basophils % 0.2; Eosinophils % 0.3; HCT 42.4 % (40.0-50.0); HGB 14.6 g/dL (13.5-17.5); Immature Grans % 0.8; MCH 30.6 pg (27.0-33.0); MCHC 34.4 % (32.0-36.0); MCV 88.9 fL (80-95); MPV 9.4 fL (8.0-11.0); Monocytes % 8.3; Neutrophils % 73.4; Nucleated RBC 0 %; Platelet Count 373 10^3/uL (130-400); RBC 4.77 10^6/uL (4.36-5.78); RDW 12.4 % (11.8-14.1)
[2020-09-11 07:18] LABS: ALT 39 U/L (16-63); AST 27 U/L (15-37); Albumin 2.8 g/dL (3.4-5.0); Alkaline Phosphatase 52 U/L (46-116); Anion Gap 8.4 mmol/L (3-11); BUN 16 mg/dL (7-18); Bilirubin, Direct 0.08 mg/dL (0.00-0.20); Bilirubin, Total 0.3 mg/dL (0.2-1.0); C-Reactive Protein 3.39 mg/dL (0.0-0.3); CO2 27.6 mmol/L (21.0-32.0); CREATININE 0.8 mg/dL (0.70-1.30); Calcium 8.6 mg/dL (8.5-10.1); Chloride 105 mmol/L (98-107); Creatine Kinase 198 U/L (39-308); Glucose 89 mg/dL (74-106); Magnesium 2.1 mg/dL (1.8-2.4); Potassium 3.8 mmol/L (3.5-5.1); Sodium 141 mmol/L (136-145); Total Protein 6.9 g/dL (6.4-8.2)
[2020-09-11 07:32] LABS: D-Dimer 999 ng/mlFEU (<500)
[2020-09-11] MEDS: Cholecalciferol (Vitamin D3) 1,000 UNIT TAB 4000 UNITS PO (08:55)
[2020-09-11] MEDS: Famotidine 20 MG TAB PO ×2 (08:56→21:23)
[2020-09-11] MEDS: Ascorbic Acid 500 MG TAB 1000 MG PO (08:56)
[2020-09-11] MEDS: Dexamethasone 4 MG TAB 6 MG PO (08:56)
[2020-09-11 09:18] LABS: Ferritin 1967 ng/mL (26-388)
--- NOTE | 2020-09-11 11:57 | PDOC.CMPRO ---
- If Service Date Differs Date of service: 09/11/20 Time of Service: 11:57 Care Management Progress Note S/O: No change in plan. Bonilla continues to meet inpatient level of care and to be closely followed. He remains on telemetry and is on 3L of O2; last sats 96%. CM is unable to visit him due to Covid 19 precautions. CM will continue to follow. A: Bonilla is a 59 year old male admitted to [facility] on 09/08/20 with Covid 19. P: Plan remains for Bonilla to return home once medically cleared by provider. CM sent a referral for PCP follow up to Marjan Estrella [facility]. He will be transported via private vehicle by family. CM will continue to follow.
--- NOTE | 2020-09-11 16:50 | W.PM.PROGNOT ---
Date of Service Date of service: 09/11/20 Time of Service: 16:50 Assessment and Plan Assessment and plan (1) Pneumonia due to COVID-19 virus: Status: Acute Assessment and plan: Continue Decadron 6 mg daily along with Remdesivir 100 mg IV daily. Remdesivir scheduled through September 13, 2020. Continue supplemental oxygen as well as standard DVT prophylaxis. Continue to monitor inflammatory markers including CRP and ferritin and D-dimer. Monitor daily CMP and CBC. (2) DVT prophylaxis: Status: Acute Assessment and plan: Continue enoxaparin 40 mg subcutaneously daily Subjective Subjective Interval history since last seen: Overall patient feels that he is improving compared to his condition on admission couple days ago. He is less short of breath than he had been. He is still requiring supplemental oxygen at 2 and half to 3 L nasal cannula but his oxygen saturation is in the mid 90s. Cough is no longer productive. Patient tolerated proning for a couple hours. He is encouraged to try to prone is much as he can tolerate and when he can no longer prone he should at least try to either sit up in a chair or walk around or he can lay on one side and rotate to his other side. Exam Narrative Exam Narrative: Middle-age male sitting up in his chair in no acute respiratory distress. He is alert and oriented person place time circumstance. Lungs with diffuse fine rales Heart regular rate and rhythm Extremities without edema nor calf or thigh tenderness. Abdomen soft and nontender Objective Last Vital Signs Temp 36.4 C L 09/11/20 13:36 Pulse 75 09/11/20 15:00 Resp 20 09/11/20 13:36 BP 130/88 09/11/20 13:36 Pulse Ox 94 09/11/20 13:36 Laboratory Results - last 24 hr 09/11/20 09/11/20 09/11/20 06:40 06:40 06:40 WBC 6.40 RBC 4.77 Hgb 14.6 Hct 42.4 MCV 88.9 MCH 30.6 MCHC 34.4 RDW 12.4 Plt Count 373 MPV 9.4 Immature Gran % 0.8 Neutrophils % 73.4 Lymphocytes % 17.0 Monocytes % 8.3 Eosinophils % 0.3 Basophils % 0.2 Nucleated RBC % 0 Absolute Neutrophils 4.70 Absolute Lymphocytes 1.09 L Absolute Monocytes 0.53 Absolute Eosinophils 0.02 Absolute Basophils 0.01 D-Dimer 999 H Sodium 141 Potassium 3.8 Chloride 105 Carbon Dioxide 27.6 Anion Gap 8.4 BUN 16 Creatinine 0.8 Estimated GFR/1.73 m2 >= 60.00 Glucose 89 Calcium 8.6 Magnesium 2.1 Ferritin 1967 H Total Bilirubin 0.3 Conjugated Bilirubin 0.08 AST 27 ALT 39 Alkaline Phosphatase 52 Creatine Kinase 198 C-Reactive Protein 3.39 H Total Protein 6.9 Albumin 2.8 L
[2020-09-11] MEDS: ALPRAZolam 0.25 MG TAB PO (21:23)
[2020-09-11] MEDS: Enoxaparin 40 MG/0.4 ML SYR SC (21:24)
[2020-09-11] MEDS: Melatonin 3 MG TAB 6 MG PO (21:24)
[2020-09-12 04:55] VITALS: BP 159/106; PULSE 78; RESP 18; TEMP 36.1; O2SAT 96
[2020-09-12] MEDS: Normal Saline Flush 10 ML SYR IVP ×2 (04:57→20:52)
[2020-09-12] MEDS: ALPRAZolam 0.25 MG TAB PO ×2 (06:59→20:53)
[2020-09-12 07:07] LABS: Abs Immature Grans 0.09 10^3/uL (0.0-0.06); Absolute Basophil Count 0.01 10^3/uL (0.0-0.2); Absolute Eosinophil Count 0.06 10^3/uL (0.0-0.7); Absolute Lymphocyte Count 1.27 10^3/uL (1.2-3.4); Absolute Monocyte Count 0.61 10^3/uL (0.1-0.8); Absolute Neutrophil Count 3.57 10^3/uL (1.2-6.7); Basophils % 0.2; Eosinophils % 1.1; HCT 40.8 % (40.0-50.0); HGB 13.7 g/dL (13.5-17.5); Immature Grans % 1.6; Lymphocytes % 22.6; MCH 29.8 pg (27.0-33.0); MCHC 33.6 % (32.0-36.0); MCV 88.7 fL (80-95); MPV 9.3 fL (8.0-11.0); Monocytes % 10.9; Neutrophils % 63.6; Nucleated RBC 0 %; Platelet Count 362 10^3/uL (130-400); RDW 12.4 % (11.8-14.1); RDW-SD 40.8 fL; WBC 5.61 10^3/uL (4.4-10.8)
[2020-09-12 07:29] LABS: ALT 41 U/L (16-63); AST 31 U/L (15-37); Albumin 2.6 g/dL (3.4-5.0); Alkaline Phosphatase 48 U/L (46-116); Anion Gap 8.7 mmol/L (3-11); BUN 14 mg/dL (7-18); Bilirubin, Total 0.4 mg/dL (0.2-1.0); C-Reactive Protein 3.46 mg/dL (0.0-0.3); CO2 26.3 mmol/L (21.0-32.0); CREATININE 0.6 mg/dL (0.70-1.30); Calcium 8.6 mg/dL (8.5-10.1); Chloride 106 mmol/L (98-107); Glucose 90 mg/dL (74-106); LDH 271 U/L (85-227); Potassium 3.6 mmol/L (3.5-5.1); Sodium 141 mmol/L (136-145); Total Protein 6.3 g/dL (6.4-8.2)
[2020-09-12 07:39] VITALS: PULSE 53
[2020-09-12 07:39] LABS: D-Dimer 917 ng/mlFEU (<500)
[2020-09-12 08:24] LABS: Ferritin 1482 ng/mL (26-388)
[2020-09-12] MEDS: Cholecalciferol (Vitamin D3) 1,000 UNIT TAB 4000 UNITS PO (08:54)
[2020-09-12] MEDS: Dexamethasone 4 MG TAB 6 MG PO (08:54)
[2020-09-12] MEDS: Famotidine 20 MG TAB PO ×2 (08:54→20:53)
[2020-09-12] MEDS: Ascorbic Acid 500 MG TAB 1000 MG PO (08:55)
[2020-09-12 09:00] VITALS: BP 154/99; PULSE 76; RESP 18; TEMP 36.2; O2SAT 96
[2020-09-12 11:07] VITALS: PULSE 73
[2020-09-12 15:50] VITALS: BP 154/100; PULSE 84; RESP 18; TEMP 36.6; O2SAT 96
--- NOTE | 2020-09-12 16:19 | W.PM.PROGNOT ---
Date of Service Date of service: 09/12/20 Time of Service: 16:20 Assessment and Plan Assessment and plan (1) Pneumonia due to COVID-19 virus: Status: Acute Assessment and plan: Continue Decadron 6 mg daily along with Remdesivir 100 mg IV daily. Remdesivir scheduled through September 13, 2020. Continue supplemental oxygen as well as standard DVT prophylaxis. Continue to monitor inflammatory markers including CRP and ferritin and D-dimer. Monitor daily CMP and CBC. (2) DVT prophylaxis: Status: Acute Assessment and plan: Continue enoxaparin 40 mg subcutaneously daily Subjective Subjective Interval history since last seen: Patient reports that his sense of taste and smell are coming back. He is not dyspneic. Respiratory therapist is wean him off oxygen and his oxygen saturation is staying at 94 to 95% on room air. Patient is anxious to return home. I told him if he remains stable on room air overnight he could probably be discharged home tomorrow. Tomorrow is his last day of Remdesivir. Exam Narrative Exam Narrative: Middle-age male alert and oriented person place time circumstance sitting up in his chair watching TV. Lungs with bibasilar fine cellophane rales no rhonchi or wheezing. Heart regular rate and rhythm Lower extremities without calf tenderness or swelling or edema Objective Last Vital Signs Temp 36.6 C 09/12/20 15:50 Pulse 84 09/12/20 15:50 Resp 18 09/12/20 15:50 BP 154/100 H 09/12/20 15:50 Pulse Ox 96 09/12/20 15:50 Laboratory Results - last 24 hr 09/12/20 09/12/20 09/12/20 06:40 06:40 06:40 WBC 5.61 RBC 4.60 Hgb 13.7 Hct 40.8 MCV 88.7 MCH 29.8 MCHC 33.6 RDW 12.4 Plt Count 362 MPV 9.3 Immature Gran % 1.6 Neutrophils % 63.6 Lymphocytes % 22.6 Monocytes % 10.9 Eosinophils % 1.1 Basophils % 0.2 Nucleated RBC % 0 Absolute Neutrophils 3.57 Absolute Lymphocytes 1.27 Absolute Monocytes 0.61 Absolute Eosinophils 0.06 Absolute Basophils 0.01 D-Dimer 917 H Sodium 141 Potassium 3.6 Chloride 106 Carbon Dioxide 26.3 Anion Gap 8.7 BUN 14 Creatinine 0.6 L Estimated GFR/1.73 m2 >= 60.00 Glucose 90 Calcium 8.6 Ferritin 1482 H Total Bilirubin 0.4 AST 31 ALT 41 Alkaline Phosphatase 48 Lactate Dehydrogenase 271 H C-Reactive Protein 3.46 H Total Protein 6.3 L Albumin 2.6 L
--- NOTE | 2020-09-12 17:07 | RESPIRATORY ---
Pt was taken off Oxygen at 1545 and pt remained 96% on room air. Pt was able to stand and walk around at 1600 without SpO2 going below 90%.
--- NOTE | 2020-09-12 19:05 | CMPROGNOTE_ITS ---
- If Service Date Differs Date of service: 09/12/20 Time of Service: 19:05 Care Management Progress Note S/O: No change in plan. Bonilla will be getting a last dose of Remdesivir early Sunday morning. He has been weaned off of O2 by respiratory therapy and his oxygen sats are remaining at 94 to 95% on room air, per MD note. If he remains stable, he may be discharged home tomorrow. CM will continue to follow. A: Bonilla is a 59 year old male admitted to [facility] on 09/08/20 with Covid 19. P: Plan remains for Bonilla to return home once medically cleared by provider. CM sent a referral for PCP follow up to Marjan Estrella [facility]. He will be transported via private vehicle by family. CM will continue to follow.
[2020-09-12] MEDS: Enoxaparin 40 MG/0.4 ML SYR SC (20:51)
[2020-09-12] MEDS: Melatonin 3 MG TAB 6 MG PO (21:05)
[2020-09-13] MEDS: Normal Saline Flush 10 ML SYR IVP (03:21)
[2020-09-13] MEDS: Normal Saline 500 ML 30 ML IV (03:22)
[2020-09-13 03:29] VITALS: BP 160/100; PULSE 68; RESP 16; TEMP 36.1; O2SAT 97
[2020-09-13 07:54] LABS: Abs Immature Grans 0.17 10^3/uL (0.0-0.06); Absolute Basophil Count 0.03 10^3/uL (0.0-0.2); Absolute Eosinophil Count 0.07 10^3/uL (0.0-0.7); Absolute Lymphocyte Count 1.77 10^3/uL (1.2-3.4); Absolute Monocyte Count 0.63 10^3/uL (0.1-0.8); Absolute Neutrophil Count 3.18 10^3/uL (1.2-6.7); Basophils % 0.5; Eosinophils % 1.2; HCT 43.5 % (40.0-50.0); HGB 14.8 g/dL (13.5-17.5); Immature Grans % 2.9; Lymphocytes % 30.3; MCH 30.6 pg (27.0-33.0); MCV 89.9 fL (80-95); MPV 9.4 fL (8.0-11.0); Monocytes % 10.8; Neutrophils % 54.3; Nucleated RBC 0 %; Platelet Count 456 10^3/uL (130-400); RBC 4.84 10^6/uL (4.36-5.78); RDW 12.2 % (11.8-14.1); RDW-SD 40.5 fL; WBC 5.85 10^3/uL (4.4-10.8)
[2020-09-13 08:20] LABS: ALT 60 U/L (16-63); AST 45 U/L (15-37); Albumin 2.8 g/dL (3.4-5.0); Alkaline Phosphatase 52 U/L (46-116); Anion Gap 9.7 mmol/L (3-11); BUN 13 mg/dL (7-18); Bilirubin, Total 0.4 mg/dL (0.2-1.0); CO2 26.3 mmol/L (21.0-32.0); CREATININE 0.7 mg/dL (0.70-1.30); Calcium 8.8 mg/dL (8.5-10.1); Chloride 105 mmol/L (98-107); Glucose 85 mg/dL (74-106); LDH 289 U/L (85-227); Potassium 3.8 mmol/L (3.5-5.1); Sodium 141 mmol/L (136-145); Total Protein 6.9 g/dL (6.4-8.2)
[2020-09-13 08:22] LABS: D-Dimer 916 ng/mlFEU (<500)
[2020-09-13] MEDS: Ascorbic Acid 500 MG TAB 1000 MG PO (08:48)
[2020-09-13] MEDS: Cholecalciferol (Vitamin D3) 1,000 UNIT TAB 4000 UNITS PO (08:48)
[2020-09-13] MEDS: Famotidine 20 MG TAB PO (08:49)
[2020-09-13] MEDS: Dexamethasone 4 MG TAB 6 MG PO (08:49)
[2020-09-13 08:52] VITALS: BP 155/90; PULSE 83; RESP 18; TEMP 36.3; O2SAT 96
[2020-09-13 09:09] LABS: Ferritin 1444 ng/mL (26-388)
[2020-09-13 11:05] VITALS: O2SAT 96
--- NOTE | 2020-09-13 11:25 | RESPIRATORY ---
RT walked with pt in his room (COVID +). Pt maintained SpO2 >/= 93% on room air and had no complaints of SOB.
--- NOTE | 2020-09-13 11:49 | W.PM.DS.N ---
Date of service: 09/13/20 Time of Service: 11:49 DS: Diagnosis Discharge Diagnosis (1) Pneumonia due to COVID-19 virus: Status: Acute Asessment and Plan: Patient was admitted with COVID-19 pneumonia and did well with supplemental oxygen along with a 5-day course of remdesivir and Decadron. At present time patient's anosmia and dysgeusia have resolved. His dyspnea and cough have resolved. His hypoxemia has resolved. Present time patient can be discharged home with follow-up with PCP in a couple weeks. For the next week patient should remain at home in home quarantine and when he does return in the public he should wear a mask and should seek COVID-19 vaccination. Discharge Plan Disposition Patient Disposition: HOME Condition: Improving Discharge Details Reason For Visit: COVID Admit Date/Time: 09/09/20 00:49 Admit Provider: Bk Velazquez Attending Provider: Bk Velazquez Primary Care Provider: None,None Hospital Course Hospital Course: 59-year-old male with no chronic medical conditions who is a non-smoker presented with 2-week history of constitutional symptoms of fatigue and myalgias along with dry cough dyspnea and diarrhea. He also developed acute loss of sense of taste and smell. He had known exposure to COVID-19 from his coworker. He presented emergency department with dry cough and shortness of breath and was found to be mildly hypoxemic with oxygen saturation 89% on room air and laboratory studies consistent with COVID-19 including elevated LDH (504) and D-dimer (172), ferritin level greater than 2000, CRP of 8.4 and a creatinine kinase of 619 and lymphopenia (absolute lymphocyte count of 880) and a nasopharyngeal swab PCR test for SARS-CoV-2 that was positive. Chest x-ray showed bilateral pulmonary infiltrates suspicious for multifocal pneumonia. Chest CT scan was performed because of the elevated D-dimer and no pulmonary embolism was seen. He has scattered peripheral groundglass opacities consistent with multifocal pneumonia consistent with a viral pneumonia. Patient was admitted to the medical/surgical floor where he was monitored with continuous pulse oximetry and placed on supplemental nasal cannula and he was started on Decadron given 10 mg initially and then placed on Decadron 6 mg daily thereafter and he was placed on ascorbic acid and vitamin D and Pepcid and was started on remdesivir 200 mg IV while in the emergency department and then he subsequently received 100 mg IV daily for 4 more doses. Patient was taught to do prone maneuver and was encouraged to be up out of bed as much as tolerated and while in bed to prone is much as possible. Patient was placed on DVT prophylaxis with standard dose enoxaparin 40 mg subcutaneously daily. Patient did well with improvement in his anosmia and dysgeusia as well as improvement in his shortness of breath. On the day prior to discharge he was transitioned to room air and maintain his oxygen saturation between 94 to 97%. Patient was discharged home in markedly improved condition. He is advised to quarantine for another week and when he is able to leave his home he should wear a mask and should seek COVID-19 vaccination in a couple of weeks. At the time of discharge his white count had normalized to 5800 with a normal lymphocyte count of 1700. D-dimer at the time of discharge was down to 916ng/mL ferritin level remains elevated at 1400 at discharge as LDH remained elevated at 289 otherwise his electrolytes were within normal limits and his BUN and creatinine were normal and his other LFTs had normalized. Home Meds and New Rx's Prescriptions: No Action No Known Home Meds RF: 0 Discharge Instructions Instructions: Complications of Infection (GEN), COVID-19 (Coronavirus Disease 2019) (DC), COVID-19: Slow the Coronavirus Spread (DC), Face Coverings (Masks) and COVID-19 (DC) Stand Alone Forms: Nursing Discharge Form Referrals: Marjan Estrella MD [ [facility] STAFF PHYSICIAN] - (Call the office to set follow-up in a couple of weeks) Activity:: Activity as Tolerated Equipment/Supplies:: No Equipment Needed Diet:: Normal Diet Discharge Orders Discharge Orders: Discharge Order (Routine); Ordered 09/13/20 Ordered By: Vinny Aguilar DS: Summary Time Spent with Patient providing and/or coordinating discharge services: Less than 30 minutes Status at Discharge Functional status at discharge: independent ambulation Overall status at discharge: patient is progressing back to baseline Mental Status: mental status grossly normal Speech and Movement: speech and movement normal Mood: congruent mood Affect: normal affect Exam Psych Mental Status: mental status grossly normal Speech and Movement: speech and movement normal Mood: congruent mood Affect: normal affect DS: Data Vitals/I&O Vitals and I&O: Vital Signs Temperature 36.3 C L 09/13/20 08:52 Temperature Source Tympanic 09/13/20 08:52 Pulse 83 09/13/20 08:52 Pulse Rhythm Regular 09/13/20 09:06 Pulse 59 L 09/10/20 21:43 Respiratory Rate 18 09/13/20 08:52 Respiratory Effort Non-Labored 09/13/20 09:06 Respiratory Depth Normal 09/13/20 09:06 Respiratory Pattern Normal 09/13/20 09:06 Blood Pressure 155/90 H 09/13/20 08:52 Blood Pressure Mean 94 09/08/20 23:30 Pulse Oximetry 96 09/13/20 11:05 Oxygen Delivery Method Room Air 09/13/20 11:05 Oxygen Flow Rate 0 09/13/20 11:05 Pain Level 0 09/13/20 08:52 Comment 09/12/20 15:50 Intake & Output 09/12/20 09/12/20 09/13/20 11:59 23:59 11:59 Intake Total 350 / 360 10 / 360 463 / 463 Balance 350 / 360 10 / 360 463 / 463 Intake: IV 100 / 110 10 / 110 163 / 163 Oral 250 / 250 300 / 300 Other: Urine Color Yellow Urine Appearance Clear Clear Clear Comment indpendant to bathroom independant Voiding Methods Toilet Toilet Toilet Data Completed and Pending Labs on day of discharge: Labs from last 24 hours 09/13/20 09/13/20 09/13/20 06:53 06:53 06:53 WBC 5.85 RBC 4.84 Hgb 14.8 Hct 43.5 MCV 89.9 MCH 30.6 MCHC 34.0 RDW 12.2 Plt Count 456 H MPV 9.4 Immature Gran % 2.9 Neutrophils % 54.3 Lymphocytes % 30.3 Monocytes % 10.8 Eosinophils % 1.2 Basophils % 0.5 Nucleated RBC % 0 Absolute Neutrophils 3.18 Absolute Lymphocytes 1.77 Absolute Monocytes 0.63 Absolute Eosinophils 0.07 Absolute Basophils 0.03 D-Dimer 916 H Sodium 141 Potassium 3.8 Chloride 105 Carbon Dioxide 26.3 Anion Gap 9.7 BUN 13 Creatinine 0.7 Estimated GFR/1.73 m2 >= 60.00 Glucose 85 Calcium 8.8 Ferritin 1444 H Total Bilirubin 0.4 AST 45 H ALT 60 Alkaline Phosphatase 52 Lactate Dehydrogenase 289 H C-Reactive Protein 2.50 H Total Protein 6.9 Albumin 2.8 L Preliminary micro results at discharge 09/08/20 23:00 Blood Culture - Preliminary Blood NO GROWTH 96 HOURS 09/08/20 21:45 Blood Culture - Preliminary Blood NO GROWTH 96 HOURS [facility] Social History Smoking/Tobacco Use Status: Never Smoking risk assessment performed?: Yes Drug use: Never Substance use type: does not use Do you feel safe at home: Yes Do you feel safe in your relationship?: Yes
--- NOTE | 2020-09-13 17:43 | CMDISCH_ITS ---
- If Service Date Differs Date of service: 09/13/20 Time of Service: 17:43 LACE Index Scoring Tool - Questions: Length of Stay (in days): 4 - 6 Acuity (Admit via E.D.?): Yes E.D. Visits: 1 - Answers: Total Score: 8 Risk of Readmission: Low Risk Care Management Discharge Reason for Hospitalization: Covid Discharge Plan: Bonilla will return home with no additional services. He will be driven home via private vehicle by family. He will follow up with [facility] in 1-2 weeks. He will follow up with his discharge plan of care. Patient/Family Education Needs: Review discharge instructions regarding activity levels and medications, discussion of self care needs including ask me three.
== END 2020-09-13 12:11 | disposition home or self-care (01) | DRG 177 ==
LOC: ER 09-09 01:21 → MS 09-09 02:27
PROVIDERS: Internal Medicine; Admitting Provider General Practice; Emergency Provider Physician Assistant; Visit Provider General Practice
DX: U07.1 COVID-19 (principal); J12.82 Pneumonia due to coronavirus disease 2019; R09.02 Hypoxemia; E55.9 Vitamin D deficiency, unspecified
CPT/HCPCS: 36415; 71275; 80048; 80053; 80076; 82306; 82550; 84145; 85027; 87040; 93005; 96361; 96374; 99222; 99232; 99233; 99238; 99285; J1650; NC; 71045; 82728; 83605; 83615; 83735; 83880; 84484; 85025; 85379; 85610; 86140; 93010; J1100; J8540; Q9967

== ENCOUNTER 2020-09-23 18:41 | Outpatient (REF) | payer MEDICAID, SELFPAY ==
[2020-09-23 19:26] LABS: Total Iron Binding Capacity 332 ug/dL (250-450)
[2020-09-23 19:40] LABS: ALT 46 U/L (16-63); AST 25 U/L (15-37); Albumin 3.6 g/dL (3.4-5.0); Alkaline Phosphatase 70 U/L (46-116); Anion Gap 8.8 mmol/L (3-11); BUN 20 mg/dL (7-18); Bilirubin, Total 0.3 mg/dL (0.2-1.0); CO2 28.2 mmol/L (21.0-32.0); CREATININE 0.9 mg/dL (0.70-1.30); Calcium 9.6 mg/dL (8.5-10.1); Calculated LDL 138 mg/dL (<100); Chloride 103 mmol/L (98-107); Cholesterol 223 mg/dL (<200); Ferritin 608 ng/mL (26-388); Glucose 87 mg/dL (74-106); HDL Cholesterol 36 mg/dL (40-60); Potassium 4.6 mmol/L (3.5-5.1); Sodium 140 mmol/L (136-145); Total Protein 7.2 g/dL (6.4-8.2); Triglyceride 247 mg/dL (<150)
[2020-09-27 11:17] LABS: Hepatitis B Surface Ag Negative (Negative)
[2020-09-27 11:19] LABS: HBs Antibody, Quant <3.1 mIU/mL (See Note); Hepatitis B Surface Ab Negative (See Note)
[2020-09-27 13:40] LABS: Hepatitis C Ab w Rflx HCV PCR Negative (Negative)
== END 2020-09-23 18:42 | disposition home or self-care (01) ==
LOC: NCHCN 18:41
PROVIDERS: Visit Provider Nurse Practitioner Family
DX: E78.5 Hyperlipidemia, unspecified (principal); U07.1 COVID-19; Z11.59 Encounter for screening for other viral diseases
CPT/HCPCS: 80053; 80061; 86706; 86803; 87340; 82728; 83550; 86704

== ENCOUNTER 2022-03-30 17:41 | Outpatient (REF) | payer MEDICAID, SELFPAY ==
[2022-03-30 19:56] LABS: Anion Gap 8.9 mmol/L (3-11); BUN 24 mg/dL (7-18); CO2 29.1 mmol/L (21.0-32.0); CREATININE 1.1 mg/dL (0.70-1.30); Calcium 9.3 mg/dL (8.5-10.1); Calculated LDL 137 mg/dL (<100); Chloride 103 mmol/L (98-107); Cholesterol 230 mg/dL (<200); Glucose 84 mg/dL (74-106); HDL Cholesterol 58 mg/dL (40-60); Potassium 4.6 mmol/L (3.5-5.1); Sodium 141 mmol/L (136-145); Triglyceride 178 mg/dL (<150)
== END 2022-03-30 17:42 | disposition home or self-care (01) ==
LOC: NCHCN 17:41
PROVIDERS: PCP Nurse Practitioner Family; Visit Provider Nurse Practitioner Family
DX: I10 Essential (primary) hypertension (principal); E78.5 Hyperlipidemia, unspecified
CPT/HCPCS: 80048; 80061